=== PATIENT | female | born 1980 | race Two or more races ===

== ENCOUNTER 2017-11-24 15:35 | Emergency (ER) | payer OTHER ==
[2017-11-24 15:59] VITALS: BP 132/102; PULSE 61; TEMP 97.9; BMI 24.0
--- NOTE | 2017-11-24 17:46 | PDOC ---
History of Present Illness - General Stated Complaint: DIZZY - History of Present Illness Initial Comments: 11/24/17 17:39 Ms. Berkowitz is a 37 yo female w/ pmh of hypothyroidism who presents for evaluation of new onset dizziness earlier today. Patient reports she was going about her normal day when she had sudden onset of dizziness she describes as the room spinning around her. She vomited twice at home which she reports consisted of the food she had eaten earlier today. Ms. Berkowitz recently got back from [place] 2 weeks ago; reports she has had no symptoms before this and that no one else she has traveled with has been sick - no one is sick at home. The patient denies chest pain, shortness of breath, and headache. Denies fever, chills, nausea, vomit, diarrhea and constipation. Denies dysuria, frequency, urgency and hematuria. Allergies: NKDA Past History - Past Medical History Allergies/Adverse Reactions: Allergies Allergy/AdvReac Type Severity Reaction Status Date / Time liver extract Allergy Verified 11/24/17 16:00 Home Medications: Ambulatory Orders Levothyroxine Sodium [Synthroid] 137 mcg PO DAILY 11/24/17 Meclizine HCl 25 mg PO BID PRN #14 tab.chew 11/24/17 COPD: No - Suicide/Smoking/Psychosocial Hx Smoking History: Never smoked Have you smoked in the past 12 months: No Information on smoking cessation initiated: No Hx Alcohol Use: No Drug/Substance Use Hx: No Substance Use Type: None Review of Systems - Review of Systems Comments:: 11/24/17 17:50 GENERAL/CONSTITUTIONAL: No fever or chills. No weakness. HEAD, EYES, EARS, NOSE AND THROAT: No change in vision. No ear pain or discharge. No sore throat. CARDIOVASCULAR: No chest pain or shortness of breath RESPIRATORY: No cough, wheezing, or hemoptysis. GASTROINTESTINAL: No nausea, vomiting, diarrhea or constipation. GENITOURINARY: No dysuria, frequency, or change in urination. MUSCULOSKELETAL: No joint or muscle swelling or pain. No neck or back pain. SKIN: No rash NEUROLOGIC: +Dizziness described as room spinning; exacerbated with leftward head movement ENDOCRINE: No increased thirst. No abnormal weight change HEMATOLOGIC/LYMPHATIC: No anemia, easy bleeding, or history of blood clots. ALLERGIC/IMMUNOLOGIC: No hives or skin allergy. *Physical Exam - Vital Signs Last Vital Signs Temp Pulse Resp BP Pulse Ox 97.9 F 61 132/102 97 11/24/17 15:55 11/24/17 15:55 11/24/17 15:55 11/24/17 15:55 - Physical Exam Comments: 11/24/17 17:52 GENERAL: Awake, alert, and fully oriented, in no acute distress HEAD: No signs of trauma, normocephalic, atraumatic EYES: PERRLA, EOMI, sclera anicteric, conjunctiva clear ENT: Auricles normal inspection, hearing grossly normal, nares patent, oropharynx clear without exudates. Moist mucosa NECK: Normal ROM, supple, no lymphadenopathy, JVD, or masses LUNGS: No distress, speaks full sentences, clear to auscultation bilaterally HEART: Regular rate and rhythm, normal S1 and S2, no murmurs, rubs or gallops, peripheral pulses normal and equal bilaterally. ABDOMEN: Soft, nontender, normoactive bowel sounds. No guarding, no rebound. No masses EXTREMITIES: Negative Hints exam. Normal inspection, Normal range of motion, no edema. No clubbing or cyanosis. NEUROLOGICAL: Cranial nerves II through XII grossly intact. Normal speech, normal gait, no focal sensorimotor deficits SKIN: Warm, Dry, normal turgor, no rashes or lesions noted. ED Treatment Course - LABORATORY CBC & Chemistry Diagram: 11/24/17 18:00 11/24/17 18:00 Medical Decision Making - Medical Decision Making 11/24/17 19:52 Ms. Berkowitz is a 37 yo female w/ pmh as described who presents for evaluation of sudden onset dizziness earlier today. Patient exam completely benign, labs grossly wnl as below. Patient UA significant for RBC's - patient is currently experiencing her period. Patient reporting relief from symptoms now and feels well enough to go home. As no focal deficits and resolution of symptoms, suspect BPPV as etiology of presentation. Discharging to home w/ instructions to f/u w/ neurology as well as with meclizine Rx. Patient verbalized understanding and agreement and will comply. Laboratory Results - last 24 hr 11/24/17 11/24/17 11/24/17 16:00 18:00 18:00 WBC 12.4 H RBC 4.55 Hgb 13.2 Hct 39.9 MCV 87.7 MCH 29.0 MCHC 33.1 RDW 12.9 Plt Count 222 MPV 8.9 Absolute Neuts (auto) 10.8 Neutrophils % 86.8 H Lymphocytes % 8.8 Monocytes % 3.9 Eosinophils % 0.2 Basophils % 0.3 Nucleated RBC % 0 Sodium Potassium Chloride Carbon Dioxide Anion Gap BUN Creatinine Creat Clearance w eGFR Random Glucose Calcium Total Bilirubin AST ALT Alkaline Phosphatase Total Protein Albumin TSH 1.53 Urine Color Straw Urine Appearance Clear Urine pH 8.0 Ur Specific Grant 1.011 Urine Protein Negative Urine Glucose (UA) Negative Urine Ketones Negative Urine Blood 3+ H Urine Nitrite Negative Urine Bilirubin Negative Urine Urobilinogen Negative Ur Leukocyte Esterase Negative Urine WBC (Auto) 2 Urine RBC (Auto) 50 Ur Epithelial Cells Rare Granular Casts 1 Urine Mucus Rare Urine HCG, Qual Negative 11/24/17 18:00 WBC RBC Hgb Hct MCV MCH MCHC RDW Plt Count MPV Absolute Neuts (auto) Neutrophils % Lymphocytes % Monocytes % Eosinophils % Basophils % Nucleated RBC % Sodium 140 Potassium 4.2 Chloride 105 Carbon Dioxide 27 Anion Gap 8 BUN 11 Creatinine 0.7 Creat Clearance w eGFR > 60 Random Glucose 97 Calcium 9.0 Total Bilirubin 0.6 AST 30 ALT 36 Alkaline Phosphatase 63 Total Protein 7.9 Albumin 4.2 TSH Urine Color Urine Appearance Urine pH Ur Specific Grant Urine Protein Urine Glucose (UA) Urine Ketones Urine Blood Urine Nitrite Urine Bilirubin Urine Urobilinogen Ur Leukocyte Esterase Urine WBC (Auto) Urine RBC (Auto) Ur Epithelial Cells Granular Casts Urine Mucus Urine HCG, Qual *DC/Admit/Observation/Transfer Diagnosis at time of Disposition: Vertigo - Discharge Dispostion Disposition: HOME - Prescriptions Prescriptions: Meclizine HCl 25 mg PO BID PRN #14 tab.chew PRN Reason: Vertigo - Referrals Referrals: Que Griffith MD [Primary Care Provider] - Kaushik Malcolm MD [Staff Physician] - - Patient Instructions Printed Discharge Instructions: Benign Paroxysmal Positional Vertigo Additional Instructions: Please follow-up with Neurology as discussed. Return to ER if any symptoms not improved with meclizine prescription, fever, chills, altered mental status, or other concerning symptoms. - Post Discharge Activity Forms/Work/School Notes: Back to Work
--- NOTE | 2017-11-24 17:54 | PDOC ---
Attending Attestation - HPI HPI: 11/24/17 18:04 The patient is a 37 year old female, with a significant past medical history of hypothyroidism, who presents to the emergency department with, 1 day of dizziness and nausea. The patient describes her symptoms as sudden onset and as the room is spinning. She reports 2 episodes of emesis which she describes as the food she consumed today. Allergies: Liver extract. Social history: Nonsmoker. Denies EtOH use and recreational drug use. Primary Care Physician: Dr. Griffith <Rodríguez Balbuena - Last Filed: 11/24/17 18:04> - Resident Resident Name: Allan Perez - ED Attending Attestation I have performed the following: I have examined & evaluated the patient, The case was reviewed & discussed with the resident, I agree w/resident's findings & plan, Exceptions are as noted - Physicial Exam PE: 11/25/17 01:37 Patient is awake and alert, well-nourished, well-appearing, in no distress Normocephalic and atraumatic PERRLA, EOMI, no nystagmus CTA RRR Cranial nerves II through XII grossly intact motor is 5 of 54; no pronation drift; fine touch and proprioception are intact bilaterally, no dysmetria, [id number] normal bilaterally; gait is stable. - Medical Decision Making 11/25/17 01:37 Patient is well-appearing 37-year-old female who presents with signs and symptoms of acute peripheral vertigo. I do not suspect centrally caused vertigo at this time. Patient's symptoms significantly improved; she was able to ambulate without difficulty. Will discharge with outpatient follow-up. <Trey Hatch - Last Filed: 11/25/17 01:38> Attestations - Attestations 11/24/17 18:04 Documentation prepared by Rodríguez Balbuena, acting as medical support specialist for Trey Hatch MD. <Rodríguez Balbuena - Last Filed: 11/24/17 18:04>
[2017-11-24 18:06] LABS: BASO % 0.3 % (0-2.0); EOS % 0.2 % (0-4.5); HEMATOCRIT 39.9 % (32.4-45.2); HEMOGLOBIN 13.2 GM/dL (10.7-15.3); LYMPH % 8.8 % (8-40); MCHC 33.1 g/dl (32.0-36.0); MEAN CELL VOLUME 87.7 fl (80-96); MEAN PLT VOLUME 8.9 fl (7.5-11.1); MONO % 3.9 % (3.8-10.2); NEUT % 86.8 % (42.8-82.8); PLATELET COUNT 222 K/MM3 (134-434); RBC 4.55 M/mm3 (3.60-5.2); RDW 12.9 % (11.6-15.6); WHITE BLOOD COUNT 12.4 K/mm3 (4.0-10.0)
[2017-11-24 18:45] LABS: ALBUMIN 4.2 g/dl (3.4-5.0); ALK PHOS 63 U/L (45-117); ANION GAP 8 (8-16); BILIRUBIN,TOTAL 0.6 mg/dL (0.2-1.0); BLOOD UREA NITROGEN 11 mg/dL (7-18); CHLORIDE 105 mmol/L (98-107); CO2 27 mmol/L (21-32); CREATININE 0.7 mg/dL (0.55-1.02); GLUCOSE,RANDOM 97 mg/dL (74-106); SGPT/ALT 36 U/L (12-78); SODIUM 140 mmol/L (136-145); TOT PROT 7.9 g/dl (6.4-8.2)
[2017-11-24 18:48] LABS: POTASSIUM 4.2 mmol/L (3.5-5.1); SGOT/AST 30 U/L (15-37)
[2017-11-24 19:00] LABS: URINE APPEARANCE CLEAR; URINE BILIRUBIN NEGATIVE (<2.0 mg/dL); URINE COLOR STRAW; URINE GLUCOSE (UA) NEGATIVE (NEGATIVE); URINE KETONE NEGATIVE (NEGATIVE); URINE LEUK ESTERASE NEGATIVE (NEGATIVE); URINE NITRITE NEGATIVE (NEGATIVE); URINE PROTEIN NEGATIVE (NEGATIVE); URINE UROBILINOGEN NEGATIVE mg/dL (0.2-1.0)
[2017-11-24 19:06] LABS: HCG,QUALITATIVE URINE NEGATIVE
[2017-11-24 19:09] LABS: EPI CELLS RARE /HPF (FEW); GRANULAR CASTS 1 /lpf; URINE MUCUS RARE
--- NOTE | 2017-11-25 09:35 | EKG ---
Test Reason : Blood Pressure : / mmHG Vent. Rate : 056 BPM Atrial Rate : 056 BPM P-R Int : 164 ms QRS Dur : 080 ms QT Int : 470 ms P-R-T Axes : 061 050 034 degrees QTc Int : 453 ms SINUS BRADYCARDIA WITH SINUS ARRHYTHMIA POSSIBLE LEFT ATRIAL ENLARGEMENT BORDERLINE ECG NO PREVIOUS ECGS AVAILABLE Confirmed by ATTILA BUENO, MASON ([id number]) on 11/25/2017 9:35:07 AM Referred By: Confirmed By:MASON AIKEN MD
--- NOTE | 2017-11-29 08:42 | PDOC ---
Patient Follow-up (Call Back) - Post ED Follow - Up Disposition at time of original discharge: HOME Reason for Call Back: Abnwl. Microbiology (Pt. with strep agalactiae group b on UC. Sensitive to PCN. Not on abx. Left message with to call back regarding results.)
== END 2017-11-24 20:21 | disposition home or self-care (01) ==
LOC: JER 15:35
DX: E03.9 Hypothyroidism, unspecified (principal)
CPT/HCPCS: 36415; 80053; 81003; 81015; 84443; 84703; 85025; 87086; 87186; 93005; 93010; 99283-25